=== PATIENT | female | born 1965 | race Caucasian/White ===

== ENCOUNTER 2016-10-10 07:04 | Day surgery (SDC) | payer OTHER ==
[~2016-10-10 07:04] MED LIST: Dextrose 5%-0.45% NaCl 1,000 ML IV SCH; Midazolam 1 MG/ML 2 ML SDV ONE; Sodium Chloride 0.9% 10 ML Syringe FLUSH PRN; fentaNYL 100 MCG/2 ML SDV ONE
[2016-10-10] MEDS ORDERED: fentaNYL 100 MCG/2 ML SDV IV ONE ×3 (07:45→16:42)
[2016-10-10] MEDS ORDERED: Midazolam 1 MG/ML 2 ML SDV IV ONE ×6 (07:46→16:42)
--- NOTE | 2016-10-10 08:38 | OR ---
DATE: 10/10/2016 PROCEDURE: Total colonoscopy. INSTRUMENT USED: PCF-H180AL Olympus video colonoscope. PREMEDICATIONS: Fentanyl 100 mcg intravenous, Versed 4 mg intravenous. Nasal O2 cannula. The procedure was done under pulse oximetry, BP recording, and athletic monitor. INDICATION: The patient with rectal bleeding. Colonoscopic examination is done for detection of any polypoid lesions and removal, endoscopic hemostasis therapy if needed. DESCRIPTION OF PROCEDURE: Initial rectal exam was unremarkable. Rigid anoscopy was normal. The colonoscope was passed with ease. Numerous scattered diverticula were noted, more so in the left colon along with some deformity. The scope was passed with ease up to the ileocecal area, photographs were taken of the normal- appearing cecum, identified by landmarks of appendiceal orifice and double- bulged ileocecal folds. No bleeding was noted from any of the visualized areas at the commencement of the examination. No stricture. No vascular ectasia. No large isolated ulcerations seen. No evidence of diffuse inflammatory bowel disease in the form of friability, contact bleeding, or ulcerations. No polyp or tumor mass identified. Probing the proximal sides of folds and flexures, using adequate distention and clearing of the stool material, withdrawal of the scope was made, cecum to rectum time over 6 minutes. No bleeding was noted from any of the visualized areas at the completion of examination. IMPRESSION: Diverticulosis. The patient tolerated the procedure well. [facility] /[id number]
[2016-10-10 10:05] VITALS: BP 108/63
== END 2016-10-10 10:05 | disposition home or self-care (01) ==
LOC: DL.ENDO 07:04
PROVIDERS: ATTEND Internal Medicine Gastroenterology
DX: K57.30 Diverticulosis of large intestine without perforation or abscess without bleeding (principal); E66.9 Obesity, unspecified; F41.1 Generalized anxiety disorder; R73.9 Hyperglycemia, unspecified; K21.9 Gastro-esophageal reflux disease without esophagitis; Z88.1 Allergy status to other antibiotic agents; I10 Essential (primary) hypertension; E78.00 Pure hypercholesterolemia, unspecified; Z90.49 Acquired absence of other specified parts of digestive tract; Z90.710 Acquired absence of both cervix and uterus; Z79.899 Other long term (current) drug therapy
CPT/HCPCS: 45378; J2250; J3010; J7042

== ENCOUNTER 2024-08-05 10:52 | Emergency (ER) | payer OTHER ==
[2024-08-05] MEDS ORDERED: Sodium Chloride 0.9% 10 ML Syringe FLUSH PRN ×2 (11:15)
[2024-08-05 11:27] LABS: BASOPHILS PERCENT AUTO 0.7 % (0.0-1.0); HEMATOCRIT 41.6 % (37.0-47.0); LYMPHOCYTES PERCENT AUTO 37.6 % (20.5-50.1); MEAN CORPUSCULAR HEMOGLOBIN 28.6 pg (27.0-34.0); MEAN CORPUSCULAR HGB CONC 33.7 g/dL (33.0-35.0); MEAN CORPUSCULAR VOLUME 84.9 fL (80-100); MONOCYTES PERCENT AUTO 7.6 % (2-8); NEUTROPHILS PERCENT AUTO 51.1 % (42.2-75.2); PLATELET COUNT,PLT 277 10^3/uL (150-450)
[2024-08-05 11:42] LABS: INR 0.9 (0.9-1.2); PROTHROMBIN TIME 9.9 SEC (9.0-12.0)
[2024-08-05 11:48] LABS: ALANINE AMINOTRANSFERASE,ALT 59 U/L (14-59); ALBUMIN 3.6 g/dL (3.4-5.0); ALKALINE PHOSPHATASE 82 U/L (46-116); ANION GAP 14.1 mEq/L (7-13); ASPARTATE AMNIOTRANSFERASE,AST 25 U/L (15-37); BILIRUBIN TOTAL 0.4 mg/dL (0.2-1.0); BLOOD UREA NITROGEN,BUN 11 mg/dL (7-18); CALCIUM 9.2 mg/dL (8.5-10.1); CARBON DIOXIDE,CO2 27 mmol/L (21-32); CHLORIDE,CL 106 mmol/L (98-107); CREATININE 0.92 mg/dL (0.55-1.02); EST CRCL DRUG DOSING (CG) 58.51 mL/min; GLUCOSE RANDOM 114 mg/dL (70-99); POTASSIUM,K 4.1 mmol/L (3.5-5.1); PROTEIN TOTAL,TP 7.3 g/dL (6.4-8.2); SODIUM,NA 143 mmol/L (136-145)
[2024-08-05 11:51] LABS: ESTIMATED GFR 71 mL/min (>=60)
[2024-08-05 14:54] VITALS: BP 147/87; PULSE 65
== END 2024-08-05 14:25 | disposition home or self-care (01) ==
LOC: DL.ED 10:52
DX: R07.9 Chest pain, unspecified (principal); I10 Essential (primary) hypertension; E78.00 Pure hypercholesterolemia, unspecified; K21.9 Gastro-esophageal reflux disease without esophagitis; E66.9 Obesity, unspecified; Z68.35 Body mass index [BMI] 35.0-35.9, adult; Z90.49 Acquired absence of other specified parts of digestive tract; Z90.710 Acquired absence of both cervix and uterus; Z88.1 Allergy status to other antibiotic agents; Z88.8 Allergy status to other drugs, medicaments and biological substances; Z79.51 Long term (current) use of inhaled steroids; Z79.899 Other long term (current) drug therapy
CPT/HCPCS: 36415; 71045; 80053; 84484; 85025; 85379; 85610; 93005; 93010; 99284; 99285